=== PATIENT | female | born 1995 | race Two or more races ===

== ENCOUNTER 2020-08-18 10:32 | Emergency (ER) | payer OTHER ==
[~2020-08-18] VITALS: Ht 162.6 cm; Wt 106.6 kg
[2020-08-18] MEDS ORDERED: SPRINTEC 28 DA1 EACH (10:44)
== END 2020-08-18 14:25 | disposition home or self-care (01) ==
LOC: ER 10:32
DX: K52.9 Noninfective gastroenteritis and colitis, unspecified (principal)

== ENCOUNTER 2021-07-26 06:38 | Outpatient (CLI) | payer OTHER ==
[~2021-07-26 06:38] MED LIST: SPRINTEC 28 DA1 EACH
== END 2021-07-26 06:56 | disposition home or self-care (01) ==
LOC: LAB 06:38
DX: R74.01 Elevation of levels of liver transaminase levels (principal)

== ENCOUNTER 2021-08-30 08:00 | Outpatient (CLI) | payer OTHER | END 2021-08-30 08:30 | disposition home or self-care (01) | LOC: PPH VACUNA 08:00 | PROVIDERS: ATTEND Emergency Medicine Pediatric Emergency Medicine | DX: Z23 Encounter for immunization (principal) ==

== ENCOUNTER 2022-05-08 15:01 | Outpatient (CLI) | payer OTHER | END 2022-05-08 15:06 | disposition home or self-care (01) | LOC: PPH VACUNA 15:01 | PROVIDERS: ATTEND Emergency Medicine Pediatric Emergency Medicine | DX: Z23 Encounter for immunization (principal) ==

== ENCOUNTER 2022-09-17 14:08 | Outpatient (CLI) | payer OTHER | END 2022-09-17 14:18 | disposition home or self-care (01) | LOC: RAD 14:08 | DX: M54.2 Cervicalgia (principal); M54.50 Low back pain, unspecified; M54.6 Pain in thoracic spine ==

== ENCOUNTER → 2022-09-19 06:48 | Outpatient (CLI) | payer OTHER | END | disposition home or self-care (01) | LOC: LAB 06:48 | PROVIDERS: ATTEND Internal Medicine | DX: R74.01 Elevation of levels of liver transaminase levels (principal) ==

== ENCOUNTER 2022-10-24 13:00 | Outpatient (CLI) | payer OTHER | END 2022-10-24 13:09 | disposition home or self-care (01) | LOC: RAD 13:00 | DX: M25.532 Pain in left wrist (principal) ==